=== PATIENT | female | born 1950 | race American Indian/Alaskan Native ===

== ENCOUNTER 2018-02-13 16:14 | Emergency (ER) | payer MEDICARE ==
[2018-02-13 16:47] VITALS: PULSE 74; TEMP 97.9
--- NOTE | 2018-02-13 17:17 | ED PDOC ---
HPI: General Adult Time Seen by Provider: 02/13/18 17:10 Chief Complaint (Nursing): Flu-like Symptoms Chief Complaint (Provider): Muscular Skeletal Pain History Per: Patient History/Exam Limitations: no limitations Onset/Duration Of Symptoms: Days Current Symptoms Are (Timing): Still Present Additional Complaint(s): 67 y/o female with a PMHx of Arthritis presents to the ED for evaluation of generalized body aches over the last 24 hours. Patient describes pain as "bone" pain and is located in the bilaterally shoulders radiating down the bilateral arms and bilateral lower extremities. Of note, patient states she has recently moved from [place] and is searching for a PMD at this time. PMD: no provider Past Medical History Reviewed: Historical Data, Nursing Documentation, Vital Signs Vital Signs: Last Vital Signs Temp 97.9 F 02/13/18 16:44 Pulse 74 02/13/18 16:44 Resp 16 02/13/18 16:44 BP 147/73 02/13/18 16:44 Pulse Ox 97 02/13/18 16:44 - Medical History PMH: Arthritis, Asthma - Surgical History Other surgeries: Cataracts Surgery - Family History Family History: States: Unknown Family Hx - Home Medications Home Medications: Ambulatory Orders Medication Instructions Recorded Cyclobenzaprine [Flexeril] 10 mg PO TID #27 tab 02/13/18 - Allergies Allergies/Adverse Reactions: Allergies Allergy/AdvReac Type Severity Reaction Status Date / Time disulfiram [From Antabuse] Allergy RASH Verified 02/13/18 16:43 Sulfa (Sulfonamide Allergy SWELLING Verified 02/13/18 16:43 Antibiotics) Review of Systems ROS Statement: Except As Marked, All Systems Reviewed And Found Negative Constitutional: Positive for: Other (Generalized Body Aches) Physical Exam - Reviewed Nursing Documentation Reviewed: Yes Vital Signs Reviewed: Yes - Physical Exam Appears: Positive for: No Acute Distress Head Exam: Positive for: ATRAUMATIC, NORMOCEPHALIC Skin: Positive for: Normal Color, Warm, Dry Eye Exam: Positive for: Normal appearance, EOMI, PERRL Neck: Positive for: Normal, Painless ROM Cardiovascular/Chest: Positive for: Regular Rate, Rhythm. Negative for: Murmur Respiratory: Positive for: Normal Breath Sounds. Negative for: Respiratory Distress Gastrointestinal/Abdominal: Positive for: Normal Exam, Soft. Negative for: Tenderness Extremity: Positive for: Normal ROM. Negative for: Deformity Neurologic/Psych: Positive for: Alert, Oriented. Negative for: Motor/Sensory Deficits - ECG O2 Sat by Pulse Oximetry: 97 (RA) Pulse Ox Interpretation: Normal Medical Decision Making Medical Decision Making: Time: 1732 Plan: -- Tylenol 650 mg PO -- Toradol 30 mg IM -- Flexeril 10 mg PO -- Patient given referral for possible PMD. Scribe Attestation: Documented by Payam Jhaveri, acting as a scribe for Sage Bearden PA-C. Provider Scribe Attestation: All medical record entries made by the Scribe were at my direction and personally dictated by me. I have reviewed the chart and agree that the record accurately reflects my personal performance of the history, physical exam, medical decision making, and the department course for this patient. I have also personally directed, reviewed, and agree with the discharge instructions and disposition. Disposition - Clinical Impression Clinical Impression: Chronic arthritis - Patient ED Disposition Is Patient to be Admitted: No Doctor Will See Patient In The: Office Counseled Patient/Family Regarding: Studies Performed, Diagnosis, Need For Followup, Rx Given - Disposition Referrals: [facility] [Outside] Disposition: Routine/Home Disposition Time: 17:56 Condition: STABLE Prescriptions: Cyclobenzaprine [Flexeril] 10 mg PO TID #27 tab Instructions: Osteoarthritis (DC), Osteoarthritis Forms: [employer] (Mauritian)
[2018-02-13 18:59] VITALS: BP 130/78; RESP 18; O2SAT 99
== END 2018-02-13 18:59 | disposition home or self-care (01) ==
LOC: H.ER 16:14
DX: M06.9 Rheumatoid arthritis, unspecified (principal)
CPT/HCPCS: 96372; 99283; J1885